=== PATIENT | female | born 1970 | race Caucasian/White ===

== ENCOUNTER → 2018-10-08 | Outpatient (CLI) | payer BC, OTHER ==
--- NOTE | 2018-10-08 15:14 | PCVCIMAG ---
EXAM: BILATERAL CAROTID DUPLEX INDICATION: Transient ischemic attack. FINDINGS: Doppler Measurements (centimeters per second): RIGHT: Peak CCA-74, Peak ECA-154, Diastolic ICA-36, Peak ICA-84, ICA/CCA Ratio-1.1. LEFT: Peak CCA-71, Peak ECA-93, Diastolic ICA-26, Peak ICA-70, ICA/CCA Ratio-1.0. RIGHT CAROTID: The carotid bulb has mild plaque. The proximal internal carotid artery shows <40% stenosis. The common carotid artery shows no significant stenosis. The external carotid artery shows 40% stenosis. LEFT CAROTID: The carotid bulb has mild plaque. The proximal internal carotid artery shows <40% stenosis. The common carotid artery shows no significant stenosis. The external carotid artery shows no significant stenosis. Antegrade flow in both vertebral arteries. IMPRESSION: <40% stenosis of the right internal carotid artery with mild plaque. <40% stenosis of the left internal carotid artery with mild plaque. LOC:[place] [id number]
--- NOTE | 2018-10-08 16:11 | PCVCIMAG ---
APPROVED REPORT Study performed: 10/08/2018 14:54:44 Exam: Stress Echocardiogram Indication: CAD , Dyspnea,TIA Patient Location: Echo lab Stress Nurse: Annetta Woods RN Room #: 2 Status: routine Ht: 5 ft 4 in HR: 95 bpm BP: 122/82 mmHg Rhythm: NSR Medical History Medical History: Diabetes, Stroke/TIA Cardiac Risk Factors: DM Previous Cardiac Procedures: NONE Pretest Chest Pain Characteristics: No chest pain Exercise History: Physically active Procedure The patient underwent an Exercise Stress Test using the Roshan Protocol. Blood pressure, heart rate, and EKG were monitored. An Echocardiogram was performed by fuel testing technician in four stages in quad fashion. At peak stress, four selected images were obtained and placed side by side with resting images for comparison. Stress Test Details Stress Test: Exercise stress testing was performed using a Roshan protocol. HR Resting HR: 95 bpmMax Heart Rate (APMHR): 171 bpm Max HR Achieved: 162 bpmTarget HR (85% APMHR): 145 bpm % of APMHR: 94 Recovery HR: 100 bpm HR response to stress: Normal HR response to stress BP Resting BP: 122/82 mmHg Max BP: 164/80 mmHg Recovery BP: 138/76 mmHg BP response to stress: Normal blood pressure response to stress. ECG Resting ECG: Sinus Rhythm Stress ECG: Sinus Rhythm ST Change: Non-ischemic Maximum ST Deviation: -1.10 mm Arrhythmia: RARE pac,pvc Recovery ECG: Sinus Rhythm Recovery ST Change: Non-ischemic Recovery ST Deviation: -0.55 mm Recovery Arrhythmia: None Clinical Reason for Termination: Maximal effort Stress Symptoms: FATIGUE Exercise duration: 6 min 40 sec Highest Stage Achieved: Stage 3: 3.4 mph at 14% grade. Exercise capacity: 9.0 METs Overall Exercise Capacity for Age: Poor Scale: Active Angina Score: None No complications. Stress ECG Conclusion The patient exercised according to the ROSHAN protocol for 6:40 mins; achieving a work level of 9.0 METS. The resting heart rate of 95 bpm zuly to a maximum heart rate of 162 bpm. This value represent 94% of the maximal, age-predicted heart rate. The resting blood pressure of 122/82 mmHg, zuly to a maximum blood pressure of 164/80 mmHg. The exercise test was stopped due to dyspnea,fatigue. Nair Treadmill Score is 11.5 which is Low risk. Pre-Stress Echo The resting Echocardiogram showed normal left ventricular contractility with an estimated Ejection Fraction of about 55-60%. Normal wall motion in all segments on baseline images. Post-Stress Echo The stress Echocardiogram showed normal left ventricular contractility with an estimated Ejection Fraction of about 65-70%. Normal augmentation of wall motion in all segments on post stress images. Clinical No clinical or ECG evidence for ischemia. Conclusion Clinical Response: Non-ischemic Exercise Capacity: Below Average Stress ECG Response: Non-ischemic Stress Echo Images: Non-ischemic Normal stress echocardiogram with maximal exercise stress. No clinical, EKG or echocardiographic evidence for ischemia. Normal stress echocardiogram with submaximal exercise stress. No prior study available for comparison. <Conclusion> Normal stress echocardiogram with maximal exercise stress. No clinical, EKG or echocardiographic evidence for ischemia. Normal stress echocardiogram with submaximal exercise stress.
== END | disposition home or self-care (01) ==
LOC: PCVCIMAG 13:54
PROVIDERS: ATTEND Internal Medicine Cardiovascular Disease
DX: I65.23 Occlusion and stenosis of bilateral carotid arteries (principal); R06.09 Other forms of dyspnea; E11.9 Type 2 diabetes mellitus without complications; E78.5 Hyperlipidemia, unspecified
CPT/HCPCS: 93325; 93351; 93880